=== PATIENT | male | born 1990 ===

== ENCOUNTER 2021-02-26 18:26 | Emergency (ER) ==
[2021-02-26] MEDS ORDERED: Ondansetron PF 4 MG/2 ML Vial ONE (18:37)
[2021-02-26] MEDS ORDERED: Boostrix 0.5 ML (Tdap) VIAL ONE (18:58)
[2021-02-26] MEDS ORDERED: Amoxicillin/Potassium Clav 875 MG TAB ONE (19:07)
== END 2021-02-26 19:10 | disposition home or self-care (01) ==
LOC: CSHERS 18:26
DX: S51.812A Laceration without foreign body of left forearm, initial encounter (principal); Z21 Asymptomatic human immunodeficiency virus [HIV] infection status; G58.9 Mononeuropathy, unspecified; Z79.899 Other long term (current) drug therapy; Z23 Encounter for immunization; X78.8XXA Intentional self-harm by other sharp object, initial encounter
CPT/HCPCS: 12002; 90471; 90715; J2405